=== PATIENT | male | born 1985 ===

== ENCOUNTER 2020-07-06 16:43 | Emergency (ER) | payer MEDICAID ==
[~2020-07-06] VITALS: Ht 162.6 cm; Wt 60.0 kg
[~2020-07-06 16:43] MED LIST: LIDOcaine 1% W/epiNEPHrine 1:200,000 10ml vial ONE
[2020-07-06 16:47] VITALS: BP 124/85
[2020-07-06] MEDS ORDERED: TETanus/Pertussis (Acell)/Diphther VAC/PF (Tdap-Adult) 0.5ml syringe IMVAC ONE (18:20)
== END 2020-07-06 19:21 | disposition home or self-care (01) ==
LOC: ER 16:43
DX: S51.812A Laceration without foreign body of left forearm, initial encounter (principal); X58.XXXA Exposure to other specified factors, initial encounter; Y93.89 Activity, other specified; Y92.89 Other specified places as the place of occurrence of the external cause; Y99.8 Other external cause status
CPT/HCPCS: 12001; 90471; 90715; 99283

== ENCOUNTER 2023-03-08 15:40 | Emergency (ER) | payer MEDICAID | END 2023-03-08 17:34 | disposition left against medical advice (07) | LOC: ER 15:41 | DX: S61.419A Laceration without foreign body of unspecified hand, initial encounter (principal); Z53.21 Procedure and treatment not carried out due to patient leaving prior to being seen by health care provider; X58.XXXA Exposure to other specified factors, initial encounter; Y93.89 Activity, other specified; Y92.89 Other specified places as the place of occurrence of the external cause; Y99.8 Other external cause status ==